=== PATIENT | male | born 1970 | race Caucasian/White ===

== ENCOUNTER 2016-09-06 06:04 | Day surgery (SDC) | payer BC ==
[~2016-09-06 06:04] MED LIST: Ketamine HCl 50 MG/ML IJ ONE; Lactated Ringers 1,000 ML IV SCH
[2016-09-06] MEDS ORDERED: DIPRIVAN 200 MG/20 ML IV ONE (08:00)
[2016-09-06 08:12] VITALS: PULSE 69
[2016-09-06 08:39] VITALS: BP 126/69; O2SAT 98
--- NOTE | 2016-09-06 09:21 | OP ---
SURGERY DATE/TIME: 09/06/2016 0656 PREOPERATIVE DIAGNOSIS: Rectal bleeding and constipation. POSTOPERATIVE DIAGNOSIS: Normal colon. PROCEDURE: Colonoscopy. SURGEON: Dr. Reyes. ANESTHESIA: MAC. Medications given by anesthesia department. HISTORY: The patient is a 46 year-old white male patient presenting now with complaints of rectal bleeding. The patient was felt the need to have endoscopic evaluation. He was appraised of the risks of the procedure including the risk of perforation, phlebitis, untoward reaction to medication, bleeding, and missed lesions. The patient verbalized his understanding and desired to have the procedure performed. DESCRIPTION OF PROCEDURE: The patient was given the medications by the anesthesia department. He had continuous pulse oximetry, ECG monitoring, intermittent blood pressure monitoring, and tidal CO2 monitoring during the examination. He was placed in the left lateral decubitus position. A digital rectal examination was performed and revealed normal anal sphincter tone and no masses, small hemorrhoids were present. The prostate was felt to be normal. The flexible Olympus pediatric colonoscope was used to intubate the rectum. A view of the colon was developed sequentially to the cecum. Upon insertion and withdrawal, including a retroflex view in the rectum, no mucosal lesions were encountered. The scope was removed from the patient who tolerated the procedure well and was sent back to OP recovery in good condition. The prep was noted to be fair to good.
== END 2016-09-06 08:25 | disposition home or self-care (01) ==
LOC: SDC 06:04
PROVIDERS: ATTEND Family Medicine
PROC: 0DJD8ZZ Inspection of Lower Intestinal Tract, Via Natural or Artificial Opening Endoscopic (ICD-10-PCS; principal; 2016-09-06)
DX: K62.5 Hemorrhage of anus and rectum (principal); R19.4 Change in bowel habit
CPT/HCPCS: 00810; J2704

== ENCOUNTER 2023-12-31 19:04 | Emergency (ER) | payer BC, OTHER ==
[2023-12-31 19:22] VITALS: TEMP 96.4
--- NOTE | 2023-12-31 19:25 | ERPHSYRPT ---
- History of Present Illness Time Seen by Provider: 12/31/23 19:19 Source: patient, family Exam Limitations: no limitations Physician History: Pt was stung by about 15 hornets early this afternoon, and about an hour later got sick with N and V. No SOBreath and no trouble swallowing. Is Diabetic. took meds but not eating. is in ER as independent source for Hx. No Hx for CAD. Currently Treated for DM, Hptn , and Cholesterol. Discussed risks/benefits of testing and Tx with pt and family including CBC, CMP, Lactate, CPK, UA, Steroids, IVF, and they wish to proceed so these are ordered. results discussed with pt and family. pt already had 100 mg benadryl No CP, not short of breath. No wheezing CHest clear, ht reg without M. . Pharynx clear without swelling, Swallowing OK in ER. Abd soft nontender without peritoneal signs , masses, or distension. No rash or urticaria. Sting sites checked for stingers with tape to extract. pt reports that he a lready removed some of them. Timing/Duration: today Severity: moderate Modifying Factors: Improves With: nothing Associated Symptoms: nausea, vomiting Allergies/Adverse Reactions: famotidine [From Pepcid] Allergy (Verified 12/31/23 19:18) Itching Home Medications: Nebivolol HCl [Bystolic] 5 mg PO DAILY 08/30/16 [History] Rosuvastatin Calcium [Crestor] 40 mg PO DAILY 08/30/16 [History] hydroCHLOROthiazide [Hydrochlorothiazide] 12.5 mg PO DAILY 08/30/16 [History] - Review of Systems Constitutional: No Fever, No Chills Eyes: No Symptoms Ears, Nose, & Throat: No Symptoms Respiratory: No Cough, No Dyspnea Cardiac: No Chest Pain, No Edema, No Syncope Abdominal/Gastrointestinal: Nausea, Vomiting, No Abdominal Pain, No Diarrhea Genitourinary Symptoms: No Dysuria Musculoskeletal: No Back Pain, No Neck Pain Skin: No Symptoms, No Rash Neurological: No Dizziness, No Focal Weakness, No Sensory Changes Psychological: No Symptoms Endocrine: No Symptoms Hematologic/Lymphatic: No Symptoms Immunological/Allergic: No Symptoms All Other Systems: Reviewed and Negative - Past Medical History Pertinent Past Medical History: Yes Neurological History: No Pertinent History ENT History: No Pertinent History Cardiac History: High Cholesterol, Hypertension Respiratory History: No Pertinent History Endocrine Medical History: No Pertinent History Musculoskeletal History: No Pertinent History GI Medical History: No Pertinent History History: No Pertinent History Psycho-Social History: No Pertinent History Male Reproductive Disorders: No Pertinent History - Past Surgical History Past Surgical History: Yes Neuro Surgical History: No Pertinent History Cardiac: No Pertinent History Respiratory: No Pertinent History Gastrointestinal: No Pertinent History Genitourinary: No Pertinent History Musculoskeletal: No Pertinent History Male Surgical History: Vasectomy Other Surgical History: Skin tag removal - Social History Smoking Status: Never smoker Exposure to second hand smoke: No Drug Use: none - Nursing Vital Signs Nursing Vital Signs: Initial Vital Signs Pulse Rate 93 H 12/31/23 19:10 Respiratory Rate 20 12/31/23 19:10 Blood Pressure 150/101 12/31/23 19:10 O2 Sat by Pulse Oximetry 99 12/31/23 19:10 Pain Scale Pain Intensity 5 - Physical Exam General Appearance: no apparent distress, alert Eye Exam: PERRL/EOMI, eyes nml inspection Ears, Nose, Throat Exam: normal ENT inspection, TMs normal, pharynx normal, moist mucous membranes Neck Exam: normal inspection, non-tender, supple, full range of motion Respiratory Exam: normal breath sounds, lungs clear, No respiratory distress Cardiovascular Exam: regular rate/rhythm, normal heart sounds, normal peripheral pulses Gastrointestinal/Abdomen Exam: soft, normal bowel sounds, No tenderness, No distention, No mass, No guarding, No rebound Rectal Exam: deferred Back Exam: normal inspection, normal range of motion, No CVA tenderness, No vertebral tenderness Extremity Exam: normal inspection, normal range of motion, pelvis stable Neurologic Exam: alert, oriented x 3, cooperative, normal mood/affect, nml cerebellar function, nml station & gait, sensation nml, No motor deficits Skin Exam: normal color, warm, dry, No rash Lymphatic Exam: No adenopathy SpO2 Interpretation: normal O2 Delivery: Room Air - Course Nursing assessment & vital signs reviewed: Yes Ordered Tests: Active Orders 24 hr Category Date Time Status IV Insertion STAT Care 12/31/23 19:26 Active CBC W DIFF Stat Lab 12/31/23 19:45 Completed CK (IN-HOUSE) [CK-Creatinine Phosphokinase] Stat Lab 12/31/23 19:45 Completed CMP Stat Lab 12/31/23 19:45 Completed LIPASE Stat Lab 12/31/23 19:45 Completed Lactic Acid Stat Lab 12/31/23 19:26 Completed Lactic Acid Stat Lab 12/31/23 21:33 Received UA W/RFX UR CULTURE Stat Lab 12/31/23 20:57 Completed Medication Summary Discontinued Medications Generic Name Dose Route Start Last Admin Trade Name Bruce PRN Reason Stop Dose Admin Methylprednisolone Sodium 0 mg 12/31/23 19:28 12/31/23 19:33 Succinate 125 mg/ Sterile IV 12/31/23 19:29 125 mg Water 2 ml STAT ONE Administration Sodium Chloride 1,000 mls @ 999 mls/hr 12/31/23 19:26 12/31/23 20:33 Sodium Chloride 0.9% 1000 Ml IV 12/31/23 20:26 Infused .Q1H1M STA Infusion Sodium Chloride Confirm 12/31/23 19:29 Sodium Chloride 0.9% 1000 Ml Administered 12/31/23 19:30 Dose 1,000 mls @ ud .ROUTE .STK-MED ONE Sodium Chloride 1,000 mls @ 999 mls/hr 12/31/23 20:30 12/31/23 21:40 Sodium Chloride 0.9% 1000 Ml IV 12/31/23 21:30 Infused .Q1H1M STA Infusion Sodium Chloride Confirm 12/31/23 20:33 Sodium Chloride 0.9% 1000 Ml Administered 12/31/23 20:34 Dose 1,000 mls @ ud .ROUTE .STK-MED ONE Methylprednisolone Sodium Succinate Confirm 12/31/23 19:32 Methylprednis Sod Succ 125 Mg/2 Ml Vial Administered 12/31/23 19:33 Dose 125 mg .ROUTE .STK-MED ONE Ondansetron HCl 4 mg 12/31/23 19:26 12/31/23 19:32 Ondansetron Hcl 4 Mg/2 Ml Vial IV 12/31/23 19:27 4 mg STAT ONE Administration Ondansetron HCl Confirm 12/31/23 19:29 Ondansetron Hcl 4 Mg/2 Ml Vial Administered 12/31/23 19:30 Dose 4 mg .ROUTE .STK-MED ONE Sterile Water Confirm 12/31/23 19:32 Water For Injection,Sterile 10 Ml Vial Administered 12/31/23 19:33 Dose 10 ml IJ .STK-MED ONE Lab/Rad Data: Laboratory Result Diagrams 12/31/23 19:45 12/31/23 19:45 Laboratory Results 12/31/23 12/31/23 12/31/23 Range/Units 20:57 19:45 19:45 WBC (4.23-9.07) x10^3/uL RBC (4.63-6.08) x10^6/uL Hgb (13.7-17.5) g/dL Hct (40.1-51.0) % MCV (79.0-92.2) fL MCH (25.7-32.2) pg MCHC (32.3-36.5) g/dL RDW (11.6-14.4) % Plt Count (163-337) x10^3/uL MPV (9.4-12.4) fL Gran % (34.0-67.9) % Immature Gran % (Auto) (0.001-0.429) % Nucleat RBC Rel Count (0.00-0.2) % Eos # (Auto) (0.04-0.54) x10^3/uL Immature Gran # (Auto) (0.001-0.031) x10^3u/L Absolute Lymphs (auto) (1.32-3.57) x10^3/uL Absolute Monos (auto) (0.30-0.82) x10^3/uL Absolute Nucleated RBC (0.00-0.012) x10^3u/L Lymphocytes % (21.8-53.1) % Monocytes % (5.3-12.2) % Eosinophils % (0.8-7.0) % Basophils % (0.2-1.2) % Absolute Granulocytes (1.78-5.38) x10^3/uL Basophils # (0.01-0.08) x10^3/uL Sodium 138 (135-145) mmol/L Potassium 4.3 (3.5-5.1) mmol/L Chloride 104 (98-107) mmol/L Carbon Dioxide 18 L (22-30) mmol/L Anion Gap 19.1 H (5-15) MEQ/L BUN 14 (9-20) mg/dL Creatinine 0.65 L (0.66-1.25) mg/dL Estimated GFR 112.7 ML/MIN Glucose 179 H (74-106) mg/dL Lactic Acid (0.4-2.0) Calcium 9.6 (8.4-10.2) mg/dL Total Bilirubin 0.80 (0.2-1.3) mg/dL AST 60 H (17-59) U/L ALT 59 H (0-50) U/L Alkaline Phosphatase 92 (38-126) U/L Creatine Kinase 133 (55-170) U/L Serum Total Protein 8.0 (6.3-8.2) g/dL Albumin 4.7 (3.5-5.0) g/dL Lipase 95 (23-300) U/L Urine Color Dark Yellow (Yellow) Urine Appearance Clear (Clear) Urine pH 5.0 (4.6-8.0) Ur Specific [place] >=1.030 A (1.005-1.030) Urine Protein Trace A (Negative) Urine Glucose (UA) Negative (Negative) mg/dL Urine Ketones Negative (Negative) Urine Blood Negative (Negative) Urine Nitrite Negative (Negative) Urine Bilirubin Negative (Negative) Urine Urobilinogen 0.2 (0.2) mg/dL Ur Leukocyte Esterase Negative (Negative) U Hyaline Cast (Auto) NONE SEEN (0-2) /LPF Urine Microscopic RBC 0-2 (0-5) /HPF Urine Microscopic WBC 0-2 (0-5) /HPF Ur Epithelial Cells None Seen (None Seen) /HPF Urine Bacteria None Seen (None Seen) /HPF Urine Culture Reflexed NO (NO) 12/31/23 12/31/23 Range/Units 19:45 19:26 WBC 16.4 H (4.23-9.07) x10^3/uL RBC 5.29 (4.63-6.08) x10^6/uL Hgb 16.2 (13.7-17.5) g/dL Hct 46.6 (40.1-51.0) % MCV 88.1 (79.0-92.2) fL MCH 30.6 (25.7-32.2) pg MCHC 34.8 (32.3-36.5) g/dL RDW 12.4 (11.6-14.4) % Plt Count 229 (163-337) x10^3/uL MPV 10.5 (9.4-12.4) fL Gran % 86.7 H (34.0-67.9) % Immature Gran % (Auto) 0.6 H (0.001-0.429) % Nucleat RBC Rel Count 0.0 (0.00-0.2) % Eos # (Auto) 0.09 (0.04-0.54) x10^3/uL Immature Gran # (Auto) 0.10 H (0.001-0.031) x10^3u/L Absolute Lymphs (auto) 0.92 L (1.32-3.57) x10^3/uL Absolute Monos (auto) 1.04 H (0.30-0.82) x10^3/uL Absolute Nucleated RBC 0.00 (0.00-0.012) x10^3u/L Lymphocytes % 5.6 L (21.8-53.1) % Monocytes % 6.3 (5.3-12.2) % Eosinophils % 0.5 L (0.8-7.0) % Basophils % 0.3 (0.2-1.2) % Absolute Granulocytes 14.24 H (1.78-5.38) x10^3/uL Basophils # 0.05 (0.01-0.08) x10^3/uL Sodium (135-145) mmol/L Potassium (3.5-5.1) mmol/L Chloride (98-107) mmol/L Carbon Dioxide (22-30) mmol/L Anion Gap (5-15) MEQ/L BUN (9-20) mg/dL Creatinine (0.66-1.25) mg/dL Estimated GFR ML/MIN Glucose (74-106) mg/dL Lactic Acid 2.8 H (0.4-2.0) Calcium (8.4-10.2) mg/dL Total Bilirubin (0.2-1.3) mg/dL AST (17-59) U/L ALT (0-50) U/L Alkaline Phosphatase (38-126) U/L Creatine Kinase (55-170) U/L Serum Total Protein (6.3-8.2) g/dL Albumin (3.5-5.0) g/dL Lipase (23-300) U/L Urine Color (Yellow) Urine Appearance (Clear) Urine pH (4.6-8.0) Ur Specific [place] (1.005-1.030) Urine Protein (Negative) Urine Glucose (UA) (Negative) mg/dL Urine Ketones (Negative) Urine Blood (Negative) Urine Nitrite (Negative) Urine Bilirubin (Negative) Urine Urobilinogen (0.2) mg/dL Ur Leukocyte Esterase (Negative) U Hyaline Cast (Auto) (0-2) /LPF Urine Microscopic RBC (0-5) /HPF Urine Microscopic WBC (0-5) /HPF Ur Epithelial Cells (None Seen) /HPF Urine Bacteria (None Seen) /HPF Urine Culture Reflexed (NO) - Progress Progress: improved, re-examined Progress Note: 12/31/23 20:35 pt advised of elevated LFTs, WBC, and Lactate for f/u PMD. 12/31/23 21:32 discussed risks/benefits of dosepak steroids and ros effect on DM with pt and spouse - they will take script if still having symptoms tomorrow and are aware to monitor glucose carefully if they decide to use it, and also script for zofr an if residual nausea returns - but there is none at this time. . He is feeling much better now. No more nausea. 12/31/23 22:18 Counseled pt/family regarding: lab results, diagnosis, need for follow-up Medical Desision Making - Independent Historian Additional History obtained from: Spouse - Discussion of managment Reviewed:: Test results, Need for additional workup Agreed on:: Treatment plan, need for follow-up - Diagnostic Testing Diagnostic test were ordered, analyzed, and reviewed by me: Yes - Risk of complications The pt has a mod risk of morbidity or mortality based on: Need for prescription drug management - Departure Departure Disposition: Home Clinical Impression: multiple hornet stings with systemic rx Condition: Good Critical Care Time: No Referrals: Provider,Unknown [Primary Care Provider] - Follow up/PCP as directed Instructions: Insect Bites and Stings ED Additional Instructions: followup elevated liver tests and white blood count , and progress with your Dr. recheck your glucose and monitor the level as the steroid treatment can affect your glucose levels. use medrol dosepak if needed starting tomorrow. Return meantime if not improving , vomiting returns, abdominal pain, dizziness, short of breaqth, rash, swelling or further symptoms of concern. Prescriptions: Ondansetron ODT 4 MG [Zofran Odt 4 mg] 4 mg PO Q6H PRN PRN #10 tablet PRN Reason: Nausea Methylprednisolone Packet [Medrol Dosepack] 4 mg PO UD #30 packet
[2023-12-31] MEDS ORDERED: Sodium Chloride 0.9% 1000 ML 1,000 ML ONE ×2 (19:29→20:33)
[2023-12-31] MEDS ORDERED: Zofran 4 MG/2 ML VIAL ONE (19:29)
[2023-12-31] MEDS: Zofran 4 MG/2 ML VIAL IV ONE (19:32)
[2023-12-31] MEDS ORDERED: solu-MEDROL ONE (19:32)
[2023-12-31] MEDS ORDERED: Sterile H2O 10 ml IJ ONE (19:32)
[2023-12-31] MEDS: Sodium Chloride 0.9% 1000 ML 1,000 ML IV STA ×2 (19:32→20:37)
[2023-12-31] MEDS: solu-MEDROL 125 MG, Sterile H2O 10 ml 2 ML IV ONE (19:33)
[2023-12-31 20:00] LABS: Absolute Neutrophil Ct (ANC) 14.24 x10^3/uL (1.78-5.38); BASOPHIL % 0.3 % (0.2-1.2); Basophil (Absolute #) 0.05 x10^3/uL (0.01-0.08); Eosinophil % 0.5 % (0.8-7.0); Eosinophil (Absolute #) 0.09 x10^3/uL (0.04-0.54); Hematocrit 46.6 % (40.1-51.0); Hemoglobin 16.2 g/dL (13.7-17.5); IMMATURE GRAN % 0.6 % (0.001-0.429); Lymphocyte (Absolute #) 0.92 x10^3/uL (1.32-3.57); Lymphocytes % 5.6 % (21.8-53.1); Mean Cell Volume 88.1 fL (79.0-92.2); Mean Corpuscular Hemoglobin 30.6 pg (25.7-32.2); Mean Corpuscular Hgb Concent. 34.8 g/dL (32.3-36.5); Mean Platelet Volume 10.5 fL (9.4-12.4); Monocyte (Absolute #) 1.04 x10^3/uL (0.30-0.82); Monocytes % 6.3 % (5.3-12.2); Neutrophil % 86.7 % (34.0-67.9); Platelet Count 229 x10^3/uL (163-337); Red Blood Count 5.29 x10^6/uL (4.63-6.08); Red Cell Distribution Width 12.4 % (11.6-14.4); White Blood Count 16.4 x10^3/uL (4.23-9.07)
[2023-12-31 20:14] LABS: ALBUMIN 4.7 g/dL (3.5-5.0); ANION GAP 19.1 MEQ/L (5-15); BILIRUBIN,TOTAL 0.8 mg/dL (0.2-1.3); Calcium 9.6 mg/dL (8.4-10.2); Creatinine 1 0.65 mg/dL (0.66-1.25); EST GLOMERULAR FILTRATION RATE 112.7 ML/MIN; Potassium 4.3 mmol/L (3.5-5.1)
[2023-12-31 21:24] VITALS: PULSE 85
[2023-12-31 21:42] LABS: Appearance Clear (Clear); Bacteria None Seen /HPF (None Seen); Bilirubin Negative (Negative); Blood Negative (Negative); Epithelial Cells None Seen /HPF (None Seen); Glucose, Urine Negative (Negative); Hyaline Casts NONE SEEN /LPF (0-2); Ketones Negative (Negative); Leukocyte Esterase Negative (Negative); Nitrite Negative (Negative); Protein,Urine Dip Trace (Negative); RBC 0-2 /HPF (0-5); Specific Gravity >=1.030 (1.005-1.030); Urobilinogen 0.2 mg/dL (0.2); WBC 0-2 /HPF (0-5)
[2023-12-31 21:47] LABS: ADD URINE CULTURE? NO (NO)
[2023-12-31 22:08] VITALS: BP 127/81; RESP 17; O2SAT 99
== END 2023-12-31 22:25 | disposition home or self-care (01) ==
LOC: ED 19:04
DX: T63.451A Toxic effect of venom of hornets, accidental (unintentional), initial encounter (principal); R11.2 Nausea with vomiting, unspecified; E11.9 Type 2 diabetes mellitus without complications; I10 Essential (primary) hypertension; E78.5 Hyperlipidemia, unspecified; Z79.52 Long term (current) use of systemic steroids; Z79.899 Other long term (current) drug therapy
CPT/HCPCS: 36000; 36415; 80053; 81001; 82550; 83605; 83690; 85025; 96360; 96374; 99284; J2405; J2919